=== PATIENT | male | born 1985 | race Caucasian/White ===

== ENCOUNTER 2023-08-28 08:57 | Outpatient (CLI) | payer OTHER, SELFPAY | END 2023-08-28 08:58 | disposition home or self-care (01) | LOC: NFLDREF 09-01 14:44 | PROVIDERS: PCP Physician Assistant Medical; Referring Provider Physician Assistant Medical; Visit Provider Physician Assistant Medical | DX: R68.82 Decreased libido (principal); Z11.3 Encounter for screening for infections with a predominantly sexual mode of transmission; Z13.29 Encounter for screening for other suspected endocrine disorder; Z13.220 Encounter for screening for lipoid disorders; Z13.228 Encounter for screening for other metabolic disorders | CPT/HCPCS: 80053; 80061; 84403; 84443; 86592; 86703; 86706; 86803; 87340 ==

== ENCOUNTER 2023-09-11 07:43 | Outpatient (CLI) | payer OTHER, SELFPAY ==
--- NOTE | 2023-09-11 08:15 | CRLHL7_ITS ---
For Patients: As a result of the Century Cures Act, medical imaging exams and procedure reports are released immediately into your electronic medical record. You may view this report before your referring provider. If you have questions, please contact your health care provider. Indication: INJURY 4 YEARS AGO,PAIN Procedure : Informed consent was obtained. The site was marked. Time-out was performed. The skin of the left shoulder was cleansed with ChloraPrep. A sterile drape was placed. 8 cc of 1 percent lidocaine was administered for superficial anesthesia. Subsequently a 22 gauge spinal needle was introduced into the left shoulder joint under intermittent fluoroscopic guidance. Injection of 2 cc nonionic Omnipaque 240 contrast confirmed intra-articular location. Subsequently 11 cc of dilute gadolinium were injected. The needle was removed and hemostasis achieved with direct pressure. A dressing was placed. The patient tolerated the procedure well without immediate complication and was immediately sent to MRI for imaging. Total fluoroscopy time 22 seconds. Impression: Successful fluoroscopically guided left shoulder arthrogram for MRI. Dictated by Scar Miller MD @ 09/11/2023 11:29:49 AM (Electronically Signed)
--- NOTE | 2023-09-11 09:15 | CRLHL7_ITS ---
For Patients: As a result of the Century Cures Act, medical imaging exams and procedure reports are released immediately into your electronic medical record. You may view this report before your referring provider. If you have questions, please contact your health care provider. Indication: INJURY 2 YEARS AGO,PAIN Procedure : Informed consent was obtained. The site was marked. Time-out was performed. The skin of the right shoulder was cleansed with ChloraPrep. A sterile drape was placed. 8 cc of 1 percent lidocaine was administered for superficial anesthesia. Subsequently a 22 gauge spinal needle was introduced into the right shoulder joint under intermittent fluoroscopic guidance. Injection of 2 cc nonionic Omnipaque 240 contrast confirmed intra-articular location. Subsequently 11 cc of dilute gadolinium were injected. The needle was removed and hemostasis achieved with direct pressure. A dressing was placed. The patient tolerated the procedure well without immediate complication and was immediately sent to MRI for imaging. Total fluoroscopy time 26 seconds. Impression: Successful fluoroscopically guided right shoulder arthrogram for MRI. Dictated by Scar Miller MD @ 09/11/2023 11:30:51 AM (Electronically Signed)
--- NOTE | 2023-09-11 09:15 | MR_ITS ---
[facility] [address] [facility] [address] Phone:?[phone] Fax:?[phone] Referring Physician Information: Cam Jeffries M.D. [id number] [address] Phone:?[phone] Fax:?[phone] Patient:Jaci Sotelo D.O.B:?1985 Sex:?Male Phone:?[phone] [facility] MRN:?[id number] Exam Date:?09/11/2023 EXAM: MR ARTHROGRAM OF THE LEFT SHOULDER CLINICAL INFORMATION: The patient is a 38-year-old with left shoulder pain. Evaluate for labral tear. PRIOR SURGERY: None reported. COMPARISON STUDIES: Comparison is made to prior radiographs dated 08/28/2023. TECHNICAL INFORMATION: This study was performed following the intra-articular administration of a dilute gadolinium solution (please see separate report). Imaging was performed on a high-field, 1.5 Tatiana MR scanner. Axial proton- density and fat-suppressed proton-density imaging of the right shoulder was performed in addition to coronal proton-density, fat-suppressed proton-density, and fat-suppressed T1 imaging. Sagittal fat-suppressed proton-density and sagittal T2 imaging was also performed. FINDINGS: Articular/Extraarticular collections: Effusion: Contrast material normally fills the glenohumeral joint space. There is low signal intensity debris within the joint space, in keeping with synovitis. Small loose bodies within the joint space cannot be excluded.. Subacromial/subdeltoid: No fluid or contrast material can be seen within the subacromial/subdeltoid bursa. Subcoracoid: No evidence for bursitis. Osseous structures: Proximal humerus: There is reactive edema and cystic change involving the anterior aspect of the proximal humerus in the region of the biceps sulcus seen on axial series 3 image 16 and on sagittal series 8 image 8. There is no evidence for fracture or acute bony injury. No Hill-Sachs or reverse Hill-Sachs lesion is identified. Glenoid: No acute bony abnormality of the glenoid fossa or glenoid neck can be seen. Acromioclavicular joint: Mild changes of acromioclavicular joint arthrosis. Coracoacromial arch: Acromion morphology: Type II. No evidence for os acromiale. Acromiohumeral space: Within normal limits. Coracohumeral space: Within normal limits. Rotator cuff and deltoid: Supraspinatus: Moderate changes of supraspinatus tendinosis are present. There is no evidence for full or partial-thickness tearing. No atrophic changes of the supraspinatus muscle belly are identified. Infraspinatus: No evidence for tendinosis, tearing, or associated muscle belly atrophy. Teres minor: No evidence for tendinosis, tearing, or associated muscle belly atrophy. Subscapularis: Moderate subscapularis tendinosis can be seen. There is no evidence for full or partial-thickness tearing. No atrophic changes of the subscapularis muscle belly are noted. Deltoid: No evidence for strain or tearing. Biceps tendon: Tendinosis, flattening, and splitting of the long head of the biceps can be seen with medial subluxation of the tendon at the level of the biceps sulcus. There is no evidence for biceps rupture or johnnie dislocation. Glenohumeral joint and labrum: Articular Cartilage: No chondral injuries along the articular surfaces of the glenohumeral articulation can be seen. No osteoarthritic changes are identified. Labrum: Broad-based tearing and degeneration of the superior portion of the glenoid labrum is present and can be seen on coronal series 5 image 14. Additional blunting and degeneration of the remainder of the labrum can be seen. No definite paralabral ganglion cyst formation is noted. Capsular Soft Tissues: Nonspecific thickening of the capsular structures of the glenohumeral articulation can be seen in the region of the axillary recess. The findings may relate to changes of adhesive capsulitis. CONCLUSION: 1. Moderate supraspinatus and subscapularis tendinosis. No full or partial- thickness rotator cuff tearing is seen. 2. Tendinosis, splitting, and medial subluxation of the long head of the biceps. 3. Mild acromioclavicular joint arthrosis. 4. Degeneration and tearing of the superior portion of the glenoid labrum. 5. No osteoarthritic changes of the glenohumeral articulation are present. [facility] Electronically signed on 09/11/2023 12:58:00 PM by Ian Bella M.D.
--- NOTE | 2023-09-11 10:15 | MR_ITS ---
[address] [address] Phone:?[phone] Fax:?[phone] Referring Physician Information: Cam Jeffries M.D. [id number] [address] Phone:?[phone] Fax:?[phone] Patient:?Burton Sotelo D.O.B:?1985 Sex:?Male Phone:?[phone] [facility] MRN:?[id number] Exam Date:?09/11/2023 EXAM: MR ARTHROGRAM OF THE RIGHT SHOULDER CLINICAL INFORMATION: The patient is a 38-year-old with right shoulder pain. Evaluate for labral tear. PRIOR SURGERY: None reported. COMPARISON STUDIES: Comparison is made to prior radiographs dated 08/28/2023. TECHNICAL INFORMATION: This study was performed following the intra-articular administration of a dilute gadolinium solution (please see separate report). Imaging was performed on a high-field, 1.5 Tatiana MR scanner. Axial proton- density and fat-suppressed proton-density imaging of the right shoulder was performed in addition to coronal proton-density, fat-suppressed proton-density, and fat-suppressed T1 imaging. Sagittal fat-suppressed proton-density and sagittal T2 imaging was also performed. FINDINGS: Articular/Extraarticular collections: Effusion: Contrast material normally fills the glenohumeral joint space. Subacromial/subdeltoid: No fluid or contrast material can be seen within the subacromial/subdeltoid bursa. Subcoracoid: No evidence for bursitis. Osseous structures: Proximal humerus: No evidence for bony injury to the proximal humerus can be seen. There is no evidence for greater tuberosity fracture. No Hill-Sachs or reverse Hill-Sachs deformity is seen. Glenoid: No acute bony abnormality of the glenoid fossa or glenoid neck can be seen. Acromioclavicular joint: Mild to moderate changes of acromioclavicular joint arthrosis are present and can be seen on sagittal series 8 image 16. Coracoacromial arch: Acromion morphology: Type I. No evidence for os acromiale. Acromiohumeral space: Within normal limits. Coracohumeral space: Within normal limits. Rotator cuff and deltoid: Supraspinatus: Moderate changes of supraspinatus tendinosis are present. There is no evidence for full or partial-thickness tearing. No atrophic changes of the supraspinatus muscle belly are identified. Infraspinatus: No evidence for tendinosis, tearing, or associated muscle belly atrophy. Teres minor: No evidence for tendinosis, tearing, or associated muscle belly atrophy. Subscapularis: Moderate subscapularis tendinosis can be seen. There is no evidence for full or partial-thickness tearing. No atrophic changes of the subscapularis muscle belly are noted. Deltoid: No evidence for strain or tearing. Biceps tendon: Tendinosis and splitting of the intra-articular portion of the long head of the biceps can be seen with additional tendinosis, splitting, and medial subluxation of the biceps tendon within the biceps sulcus. There is no evidence for rupture or johnnie dislocation. Glenohumeral joint and labrum: Articular Cartilage: No chondral injuries along the articular surfaces of the glenohumeral articulation can be seen. No osteoarthritic changes are identified. Labrum: Broad-based, complex tearing of the superior portion of the glenoid labrum is present and can be seen to best advantage on coronal series 6 image 16. Additional blunting and irregularity of the remainder of the labrum is noted. No definite evidence for well-defined paralabral ganglion cyst formation is seen. Capsular Soft Tissues: No definite capsular abnormalities of the glenohumeral joint are seen. No evidence for capsular tearing is present and there are no MR signs of adhesive capsulitis. CONCLUSION: 1. Complex tearing of the superior portion of the glenoid labrum with degeneration and blunting of the remainder of the labrum. 2. Moderate supraspinatus and subscapularis tendinosis. No full or partial- thickness rotator cuff tearing is seen. 3. Tendinosis, flattening, splitting, and medial subluxation of the long head of the biceps. 4. Mild to moderate acromioclavicular joint arthrosis. 5. No osteoarthritic changes of the glenohumeral articulation are seen. [facility] Electronically signed on 09/11/2023 12:53:00 PM by Ian Bella M.D.
== END 2023-09-11 07:44 | disposition home or self-care (01) ==
LOC: RAD 07:43
PROVIDERS: PCP Physician Assistant Medical; Visit Provider Orthopaedic Surgery
DX: M25.511 Pain in right shoulder (principal); M25.512 Pain in left shoulder; M75.102 Unspecified rotator cuff tear or rupture of left shoulder, not specified as traumatic; M19.012 Primary osteoarthritis, left shoulder; S43.432A Superior glenoid labrum lesion of left shoulder, initial encounter; S43.431A Superior glenoid labrum lesion of right shoulder, initial encounter; M75.101 Unspecified rotator cuff tear or rupture of right shoulder, not specified as traumatic; M19.011 Primary osteoarthritis, right shoulder
CPT/HCPCS: 23350; 73222; 77002; A9575; Q9966